=== PATIENT | male | born 1985 | race Caucasian/White ===

== ENCOUNTER 2022-04-18 13:24 | Emergency (ER) | payer OTHER ==
[~2022-04-18] VITALS: Ht 180.3 cm; Wt 89.5 kg
== END 2022-04-18 16:59 | disposition home or self-care (01) ==
LOC: ED 13:24
DX: S39.012A Strain of muscle, fascia and tendon of lower back, initial encounter (principal); V89.2XXA Person injured in unspecified motor-vehicle accident, traffic, initial encounter; I10 Essential (primary) hypertension
CPT/HCPCS: 72100; 99284-25